=== PATIENT | male | born 1955 | race Caucasian/White ===

== ENCOUNTER 2020-05-09 15:12 | Emergency (ER) | payer OTHER, BC ==
[~2020-05-09] VITALS: Ht 182.9 cm; Wt 77.5 kg
--- NOTE | 2020-05-09 16:07 | NUR ---
MEDICAL AFFAIRS DIRECTOR: PT TO ROOM FROM BLAIR SLOAN
--- NOTE | 2020-05-09 16:18 | NUR ---
first contact with pt. pt c/o painful urination. pt denies abd pain/n/v/d. pt's aox4. resps even and unlabored. bp/spo2 monitors in place. call light within reach.
--- NOTE | 2020-05-09 16:24 | NUR ---
pt stated "i peed and gave the sample at the lobby already."
[2020-05-09 16:50] LABS: MICROSCOPIC INDICATED
[2020-05-09] MEDS ORDERED: KETOROLAC 30 MG/1 ML IM ONE (17:00)
[2020-05-09] MEDS ORDERED: KETOROLAC 30 MG/1 ML ONE (17:05)
--- NOTE | 2020-05-09 17:07 | NUR ---
pt medicated per emar. pt tolerated well.
[2020-05-09 17:09] VITALS: BP 122/75
[2020-05-09] MEDS ORDERED: CEFTRIAXONE 250 MG IM ONE (17:30)
[2020-05-09] MEDS ORDERED: AZITHROMYCIN 500 MG TABLET PO ONE (17:30)
[2020-05-09] MEDS ORDERED: AZITHROMYCIN 250 MG TABLET ONE (17:30)
[2020-05-09] MEDS ORDERED: CEFTRIAXONE 250 MG ONE (17:30)
--- NOTE | 2020-05-09 17:40 | NUR ---
pt medicated per emar. pt tolerated well. pt's aox4. resps even and unlabored.
--- NOTE | 2020-05-09 17:58 | NUR ---
Patient given discharge instructions and they have confirmed that they understand the instructions.
== END 2020-05-09 17:59 ==
LOC: ED 17:53
DX: N30.01 Acute cystitis with hematuria (principal); N34.2 Other urethritis
CPT/HCPCS: 81001; 87086; 96372; 99284; J0696; J1885; 87077

== ENCOUNTER 2021-03-13 14:24 | Emergency (ER) | payer OTHER ==
[~2021-03-13] VITALS: Ht 188 cm; Wt 78.5 kg
--- NOTE | 2021-03-13 14:51 | NUR ---
PT HAS CO CHEST PAIN FOR 1 WEEK, WORSENING YESTERDAY, PAIN RIGHT CHEST. RELIEVED WHEN LAYING DOWN. COMES BACK SITTING UP. WAVE OF NAUSEA TODAY FOR 15 MIN. NO SOB. NO RADIATION TO ANYWHERE OR DIAPHORESIS. EKG DONE, CARD MONITOR INTACT. DENIES HEALTH HISTORY OR SUBSTANCE USE.
[2021-03-13 15:33] LABS: BASOPHILS % (AUTO) 1 % (0-1); EOSINOPHILS % (AUTO) 2 % (1-7); LYMPHOCYTES % (AUTO) 32 % (22-44); MEAN CORPUSCULAR HEMOGLOBIN 31.7 pg (27.5-34.5); MEAN CORPUSCULAR HGB CONC 34.1 g/dL (33.2-36.2); MEAN PLATELET VOLUME 6.9 fL (7.4-10.4); MONOCYTES % (AUTO) 11 % (2-9); NEUTROPHILS % (AUTO) 53 % (42-75); PLATELET COUNT 241 x10^3/uL (130-400); RED BLOOD COUNT 4.05 x10^6/uL (4.38-5.82); RED CELL DISTRIBUTION WIDTH 13.3 % (9.4-14.8)
[2021-03-13 15:42] LABS: ALBUMIN 3.7 g/dL (3.4-5.0); ANION GAP 3 mmol/L (5-15); CALCIUM 8.8 mg/dL (8.5-10.1); CHLORIDE 109 mmol/L (98-107); CREATININE 0.79 mg/dL (0.7-1.3)
[2021-03-13 15:45] LABS: TROPONIN I < 0.015 ng/mL (0.000-0.045)
--- NOTE | 2021-03-13 15:57 | NUR ---
PIV PLACED FOR CTA
[2021-03-13] MEDS ORDERED: SODIUM CHLORIDE FLUSH 10ML SYR IVF ONE (16:00)
--- NOTE | 2021-03-13 16:48 | NUR ---
PT IN CT
[2021-03-13] MEDS ORDERED: OMNIPAQUE 350 MG/ML, 100ML BOTTLE ONE (17:15)
--- NOTE | 2021-03-13 18:42 | NUR ---
REPORT FROM GEORGE SPARKS
[2021-03-13 18:54] VITALS: BP 119/73
--- NOTE | 2021-03-13 19:12 | NUR ---
Patient given discharge instructions and they have confirmed that they understand the instructions. Patient ambulatory with steady gait. NAD, all questions answered appropriately, denies additional needs at this time. No personal belongings left in room after discharge.
== END 2021-03-13 19:23 | disposition home or self-care (01) ==
LOC: ED 17:04
DX: R07.89 Other chest pain (principal); K80.20 Calculus of gallbladder without cholecystitis without obstruction; R94.31 Abnormal electrocardiogram [ECG] [EKG]
CPT/HCPCS: 36415; 71045; 71275; 80048; 82040; 84484; 85025; 93005; 99285; Q9967